=== PATIENT | male | born 1995 ===

== ENCOUNTER → 2018-03-23 | Outpatient (CLI) | payer OTHER ==
--- NOTE | 2018-03-24 07:48 | DIAGNOSTIC IMAGING REPORT ---
L SHOULDER MIN 2 VIEWS CLINICAL HISTORY: LEFT SHOULDER PAIN pain COMPARISON: None. DISCUSSION: The bones and joint spaces appear intact. There is no evidence of fracture, dislocation or bony disease. There is no evidence for soft tissue swelling. IMPRESSION: Negative study. The above report was generated using voice recognition software. It may contain grammatical, syntax or spelling errors. Electronically signed by: Ankush Wallace M.D. 03/24/2018 7:46 AM Dictated Date/Time: 03/24/2018 7:35 AM
== END | disposition home or self-care (01) ==
LOC: C.RDSM 15:08
PROVIDERS: ATTEND Family Medicine
DX: M25.512 Pain in left shoulder (principal)